=== PATIENT | male | born 1990 | race Caucasian/White ===

== ENCOUNTER → 2021-11-15 | Outpatient (CLI) | payer BC, OTHER | LOC: M PLALAB 09:56 | PROVIDERS: ATTEND Advanced Practice Midwife | DX: Z80.3 Family history of malignant neoplasm of breast (principal); Z13.71 Encounter for nonprocreative screening for genetic disease carrier status; Z53.9 Procedure and treatment not carried out, unspecified reason ==

== ENCOUNTER → 2025-07-27 | Outpatient (CLI) | payer OTHER ==
[2025-07-27 18:51] LABS: LDH LACTATE DEHYDROGENASE 163.0 U/L (120-246)
== END ==
LOC: M RAD 09:53
PROVIDERS: ATTEND Internal Medicine
DX: N50.811 Right testicular pain (principal); D40.11 Neoplasm of uncertain behavior of right testis

== ENCOUNTER → 2025-07-28 | Outpatient (CLI) | payer OTHER ==
[~2025-07-28] MED LIST: CEPH500C PO; MULTTAB61 PO; ONDA-83 PO; OXYC1TAB23 PO
[2025-07-28 18:45] LABS: PLATELET COUNT, AUTOMATED 166 10^3/uL (150-450)
[2025-07-28 19:02] LABS: CALCIUM LEVEL 9.3 MG/DL (8.5-10.1); CARBON DIOXIDE LEVEL 31 MMOL/L (20-31); CHLORIDE LEVEL 101 MMOL/L (98-107); CREATININE FOR GFR 1.04 MG/DL (0.70-1.30); GLOMERULAR FILTRATION RATE > 90.0 (>60); POTASSIUM SERUM 4.4 MMOL/L (3.5-5.1); SODIUM LEVEL 141 MMOL/L (136-145)
== END ==
LOC: M PLAIMG 16:26
PROVIDERS: ATTEND Physician Assistant
DX: Z01.818 Encounter for other preprocedural examination (principal)

== ENCOUNTER 2025-08-05 07:34 | Day surgery (SDC) | payer OTHER ==
[~2025-08-05] VITALS: Ht 157.5 cm; Wt 64.9 kg
[~2025-08-05 07:34] MED LIST changes: -CEPH500C PO; -ONDA-83 PO; -OXYC1TAB23 PO
[2025-08-05] MEDS ORDERED: ONDANSETRON 4MG 2ML VIAL As Ordered ONE (07:43)
[2025-08-05] MEDS ORDERED: dexAMETHasone 4 MG/ML 1 ML VIAL As Ordered ONE (07:43)
[2025-08-05] MEDS ORDERED: LIDOCAINE 2% 100 MG/5 ML SDV (FOR ANES.) As Ordered ONE (07:43)
[2025-08-05] MEDS ORDERED: MIDAZOLAM INJ 2 MG/2 ML VIAL As Ordered ONE (07:44)
[2025-08-05] MEDS ORDERED: LIDOCAINE 1% SDV 5 ML VIAL SC PRN (08:10)
[2025-08-05] MEDS: LR 1,000 ML IV SCH (08:13)
[2025-08-05] MEDS: ceFAZolin SOD 2 GM IV ONCE IV ONE (09:03)
[2025-08-05] MEDS ORDERED: ACETAMINOPHEN 1000MG/100ML IV BAG As Ordered ONE (09:04)
[2025-08-05] MEDS: LIDOCAINE 1% MDV 20 ML VIAL As Ordered ONE (10:05)
[2025-08-05] MEDS ORDERED: LR 1,000 ML IV SCH (10:25)
[2025-08-05] MEDS: HYDROMORPHONE HCL 0.5 MG/0.5 ML SYRINGE IV PRN (10:41)
[2025-08-05] MEDS: ONDANSETRON 4MG 2ML VIAL IV PRN (10:43)
[2025-08-05] MEDS ORDERED: OXYC1TAB23 PO (10:50)
[2025-08-05] MEDS ORDERED: CEPH500C PO (10:50)
[2025-08-05] MEDS ORDERED: MORPHINE 4 MG/ML 1 ML VIAL IV ONE (13:15)
[2025-08-05] MEDS: ACETAMINOPHEN 325 MG TAB PO STA (16:22)
[2025-08-05 16:55] VITALS: BP 105/52; TEMP 98.2; O2SAT 96
[2025-08-05] MEDS ORDERED: ONDA-83 PO (19:39)
== END 2025-08-05 17:00 | disposition home or self-care (01) ==
LOC: M SDC 07:34
PROVIDERS: ATTEND Urology
DX: N50.9 Disorder of male genital organs, unspecified (principal)
CPT/HCPCS: 54530; 88309; J0131; J0665; J0688; J1100; J1171; J2250; J2405; J2550; J2765; J3010

== ENCOUNTER → 2025-09-07 | Outpatient (CLI) | payer OTHER ==
[~2025-09-07] MED LIST changes: +CEPH500C PO; +ISOVUE-370 76% 100 ML VIAL ONE; +ONDA-83 PO; +OXYC1TAB23 PO
[2025-09-07 15:37] LABS: LDH LACTATE DEHYDROGENASE 153.0 U/L (120-246)
== END ==
LOC: M PLAIMG 12:09
PROVIDERS: ATTEND Urology
DX: C62.11 Malignant neoplasm of descended right testis (principal); Z90.79 Acquired absence of other genital organ(s)